=== PATIENT | female | born 1990 | race Caucasian/White ===

== ENCOUNTER → 2017-07-01 | Outpatient (CLI) | payer OTHER ==
--- NOTE | 2017-07-01 15:19 | KCIC ---
Pelvic ultrasound Clinical Indication:Right lower quadrant pain for one year.. . TRANSABDOMINAL SCAN Uterus measures about 7.6 cm x 3.0 cm x 4.7 cm. Ovaries are suboptimally visualized. TRANSVAGINAL SCAN Uterus: Measures 7.9 cm longitudinal by 3.3 cm AP by 4.0 cm wide. Endometrium: 6 mm thick. Right ovary: 3.7 cm long axis with multiple small follicles. Positive blood flow documented. Left ovary: 3.2 cm long axis. Multiple small follicles, largest cyst measures 16 mm. Positive blood flow. Free fluid: None visualized. IMPRESSION: No significant sonographic abnormality. Electronically signed by: Eagle Lobo MD (07/01/2017 3:16 PM) [facility]2
--- NOTE | 2017-07-02 18:14 | KCIC ---
Left breast ultrasound: Reason for examination: Left breast pain and lump. Ultrasound examination of the left breast was performed with attention to the area of clinical concern. No discrete cystic or solid nodules or architectural distortions are seen. IMPRESSION: No focal abnormalities evident in the left breast. Recommend clinical follow-up. BI-RADS Category 1: Negative. "Our facility is accredited by the [employer] Mammography Program." This patient's information has been entered into a reminder system for the patient to be notified with the results of her examination and a target date for the next mammogram. Electronically signed by: Monique Abdullahi MD (07/02/2017 6:10 PM) [id number]
== END | disposition home or self-care (01) ==
LOC: KCIC US 14:01
PROVIDERS: ATTEND Obstetrics & Gynecology
DX: N63 Unspecified lump in breast (principal); N64.4 Mastodynia; R10.31 Right lower quadrant pain
CPT/HCPCS: 76641; 76830; 76856

== ENCOUNTER → 2017-10-22 | Outpatient (CLI) | payer OTHER ==
--- NOTE | 2017-10-22 12:39 | KCIC ---
EXAM: Abdomen sonogram limited. HISTORY: Right upper quadrant pain. TECHNIQUE: Sonographic imaging of the abdomen was performed. COMPARISON: None. FINDINGS: The liver is upper normal in size to mildly enlarged. There is suspected hepatic steatosis. The gallbladder is unremarkable. The common bile duct is normal in caliber. The pancreas and inferior vena cava and aorta are unremarkable. The left kidney measures 12.0 cm [id number]-[id number] and is unremarkable. The right kidney is not seen. IMPRESSION: 1. Upper normal to mildly enlarged liver. 2. Suspected hepatic steatosis. 3. Nonvisualization of the right kidney. This may be due to agenesis, hypoplasia or severe atrophy. Electronically signed by: Wendie Jimenez MD (10/22/2017 12:36 PM) [facility]1
== END | disposition home or self-care (01) ==
LOC: KCIC US 11:15
PROVIDERS: ATTEND Physician Assistant Medical
DX: K76.0 Fatty (change of) liver, not elsewhere classified (principal)
CPT/HCPCS: 76705

== ENCOUNTER → 2018-01-11 | Outpatient (CLI) | payer OTHER ==
[2018-01-11] MEDS: NORMAL SALINE IV (12:35)
[2018-01-11] MEDS: SINCALIDE IV (12:35)
== END | disposition home or self-care (01) ==
LOC: NM 09:21
DX: R10.31 Right lower quadrant pain (principal); Z86.79 Personal history of other diseases of the circulatory system
CPT/HCPCS: 78226; 96374; 96375; A9537; J2805

== ENCOUNTER → 2018-04-06 | Outpatient (CLI) | payer OTHER | END | disposition home or self-care (01) | LOC: KCIC US 09:24 | DX: R10.84 Generalized abdominal pain (principal); Z86.79 Personal history of other diseases of the circulatory system | CPT/HCPCS: 76700 ==

== ENCOUNTER → 2018-04-26 | Outpatient (CLI) | payer OTHER ==
[2018-04-26] MEDS: IOHEXOL 240 MG/ML 50ML VIAL. PO (08:50)
[2018-04-26] MEDS: IOHEXOL 300 MG/ML 100ML VIAL. IV (09:53)
== END | disposition home or self-care (01) ==
LOC: KCIC CT 08:38
DX: K76.0 Fatty (change of) liver, not elsewhere classified (principal); N32.89 Other specified disorders of bladder
CPT/HCPCS: 74177; Q9966; Q9967

== ENCOUNTER → 2018-05-31 | Outpatient (CLI) | payer OTHER ==
[2018-05-31 10:35] LABS: ADD MAN DIFF? NO
[2018-05-31 10:52] LABS: BASO # 0.1 x10^3/uL (0.0-0.2); BASO % 1 % (0-3); EOS # 0.4 x10^3/uL (0.0-0.7); EOS % 4 % (0-3); HEMATOCRIT 37.3 % (36.0-47.0); HEMOGLOBIN 12.3 g/dL (12.0-15.5); LYMPH # 2.1 x10^3/uL (1.0-4.8); LYMPH % 23 % (24-48); MEAN CORPUSCULAR HEMOGLOBIN 28 pg (25-35); MEAN CORPUSCULAR HGB CONC 33 g/dL (31-37); MEAN CORPUSCULAR VOLUME 86 fL (79-100); MONO # 0.5 x10^3/uL (0.0-1.1); MONO % 5 % (0-9); NEUT # 6.1 x10^3uL (1.8-7.7); NEUT % 66 % (31-73); PLATELET COUNT 295 x10^3/uL (140-400); RED BLOOD COUNT 4.33 x10^6/uL (3.50-5.40); RED CELL DISTRIBUTION WIDTH 14.2 % (11.5-14.5); WHITE BLOOD COUNT 9.2 x10^3/uL (4.0-11.0)
[2018-05-31 11:02] LABS: ALBUMIN 3.5 g/dL (3.4-5.0); ANION GAP 7 (6-14); BLOOD UREA NITROGEN 12 mg/dL (7-20); CALCIUM 8.9 mg/dL (8.5-10.1); CARBON DIOXIDE 26 mmol/L (21-32); CHLORIDE 104 mmol/L (98-107); CREATININE 0.9 mg/dL (0.6-1.0); GFR 76.3; GLUCOSE 76 mg/dL (70-99); SODIUM 137 mmol/L (136-145); TOTAL BILIRUBIN 0.2 mg/dL (0.2-1.0)
== END | disposition home or self-care (01) ==
LOC: SURGPAT 09:59
DX: Z01.818 Encounter for other preprocedural examination (principal); K81.1 Chronic cholecystitis
CPT/HCPCS: 36415; 80048; 82040; 82247; 85025

== ENCOUNTER → 2018-06-29 | Outpatient (CLI) | payer OTHER ==
[2018-06-29 16:24] LABS: ADD MAN DIFF? NO
[2018-06-29 16:27] LABS: BASO # 0.1 x10^3/uL (0.0-0.2); BASO % 1 % (0-3); EOS # 0.2 x10^3/uL (0.0-0.7); EOS % 2 % (0-3); HEMOGLOBIN 11.4 g/dL (12.0-15.5); LYMPH % 23 % (24-48); MEAN CORPUSCULAR HEMOGLOBIN 29 pg (25-35); MEAN CORPUSCULAR HGB CONC 33 g/dL (31-37); MEAN CORPUSCULAR VOLUME 86 fL (79-100); MONO # 0.5 x10^3/uL (0.0-1.1); MONO % 5 % (0-9); NEUT # 6.1 x10^3uL (1.8-7.7); NEUT % 69 % (31-73); PLATELET COUNT 258 x10^3/uL (140-400); RED BLOOD COUNT 3.96 x10^6/uL (3.50-5.40); RED CELL DISTRIBUTION WIDTH 14.3 % (11.5-14.5); WHITE BLOOD COUNT 8.9 x10^3/uL (4.0-11.0)
[2018-06-29 16:29] LABS: BILIRUBIN,URINE NEGATIVE (NEG); CLARITY,URINE CLEAR; COLOR,URINE YELLOW; GLUCOSE,URINE NEGATIVE (NEG); NITRITE,URINE NEGATIVE (NEG); PH,URINE 5.5; PROTEIN,URINE NEGATIVE (NEG-TRACE); UROBILINOGEN,URINE 0.2 mg/dL (0.2 mg/dL)
[2018-06-29 16:38] LABS: BACTERIA,URINE FEW /HPF (0-FEW); RBC,URINE 0 /HPF (0-2); SQUAMOUS EPITHELIAL CELL,UR FEW /LPF; WBC,URINE 0 /HPF (0-4)
[2018-06-29 16:49] LABS: ALBUMIN 3.4 g/dL (3.4-5.0); ALBUMIN/GLOBULIN RATIO 0.9 (1.0-1.7); ALK PHOS 116 U/L (46-116); ALT (SGPT) 22 U/L (14-59); ANION GAP 9 (6-14); AST (SGOT) 17 U/L (15-37); BLOOD UREA NITROGEN 12 mg/dL (7-20); BUN/CREATININE RATIO 13 (6-20); CALCIUM 8.4 mg/dL (8.5-10.1); CARBON DIOXIDE 24 mmol/L (21-32); CHLORIDE 105 mmol/L (98-107); CREATININE 0.9 mg/dL (0.6-1.0); GFR 76.3; GLUCOSE 100 mg/dL (70-99); POTASSIUM 3.9 mmol/L (3.5-5.1); SODIUM 138 mmol/L (136-145); TOTAL BILIRUBIN 0.2 mg/dL (0.2-1.0); TOTAL PROTEIN 7.3 g/dL (6.4-8.2)
== END | disposition home or self-care (01) ==
LOC: LAB 16:02
DX: R10.9 Unspecified abdominal pain (principal)
CPT/HCPCS: 36415; 80053; 81001; 85025

== ENCOUNTER → 2018-06-30 | Outpatient (CLI) | payer OTHER | END | disposition home or self-care (01) | LOC: US 09:35 | DX: K76.0 Fatty (change of) liver, not elsewhere classified (principal); Z86.79 Personal history of other diseases of the circulatory system | CPT/HCPCS: 76705 ==

== ENCOUNTER → 2018-10-03 | Outpatient (CLI) | payer OTHER ==
[~2018-10-03] MED LIST: DOXY100C14 PO; ESCITALOPRAM OX10 MG PO; OSEL30CA PO; OXYC-323 PO; PROAIR HFA8.5 GM INH; SENN1TAB70 PO
--- NOTE | 2018-10-03 17:21 | RAD ---
Examination: CT CHEST WO CONTRAST History: EFFUSION Comparison/Correlation: 01/21/2018 two-view chest x-ray exam Findings: Axial images of the chest were obtained without contrast. Sagittal and coronal reformatted images were provided. Trachea and bronchial tree are unremarkable. Linear atelectasis or scarring involves the right middle lobe. No pleural or pericardial effusion. No masses or pulmonary nodules. No suspicious infiltrates. Bony structures are unremarkable. No enlarged thoracic lymph nodes. Cholecystectomy is evident. Severe right renal atrophy is evident and this may be developmental. Small right renal cyst at the posterior aspect is suspected. Impression: No pleural or pericardial effusion. No infiltrates. Severe right renal atrophy. Electronically signed by: Derrek Noe MD (10/03/2018 5:18 PM) [facility]
== END | disposition home or self-care (01) ==
LOC: CT 14:06
PROVIDERS: ATTEND Internal Medicine Critical Care Medicine
DX: Z00.00 Encounter for general adult medical examination without abnormal findings (principal); N26.1 Atrophy of kidney (terminal); Z90.49 Acquired absence of other specified parts of digestive tract
CPT/HCPCS: 71250

== ENCOUNTER → 2018-11-10 | Outpatient (CLI) | payer OTHER ==
[~2018-11-10] MED LIST changes: +ALBU2.5V8 INH; +ALBUTEROL SULFATE 2.5 MG/3 ML NEBU. NEB ONE; +METHACHOLINE CHLORIDE 100 MG VIAL.NEB. INH ONE; -OXYC-323 PO; +OXYC1TAB15 PO; -PROAIR HFA8.5 GM INH
--- NOTE | 2018-11-15 12:58 | RESP ---
DATE OF SERVICE: 11/10/2018 ATTENDING PHYSICIAN: Marin Barroso PA-C The patient underwent methacholine challenge performed on 11/10/2018. Cumulative dose of methacholine resulted in decrease FEV1, the baseline was 2.76 liters at 97% of predicted. After methacholine challenge, it decreased to 2.39 liters at 84% of predicted. IMPRESSION: Positive methacholine challenge revealed decrease FEV1 from 2.76 liters to 2.39 liters. KATHERINE VILLAGRAN MD DR: MARIZOL/smith JOB#: [id number] / [id number]
== END | disposition home or self-care (01) ==
LOC: PF 08:30
PROVIDERS: ATTEND Internal Medicine Critical Care Medicine
DX: J45.909 Unspecified asthma, uncomplicated (principal)
CPT/HCPCS: 94060; 94070; 94618; 94640; J7613; J7674

== ENCOUNTER → 2018-11-11 | Outpatient (CLI) | payer OTHER ==
[~2018-11-11] MED LIST changes: -ALBUTEROL SULFATE 2.5 MG/3 ML NEBU. NEB ONE; -METHACHOLINE CHLORIDE 100 MG VIAL.NEB. INH ONE
--- NOTE | 2018-11-11 15:52 | CARD ---
MR#: [id number] Date of Study: 11/11/2018 Ordering Physician: BASIM SHARMA, Referring Physician: BASIM SHARMA, Tech: Roberta Damian [facility] APPROVED REPORT EXAM: Two-dimensional and M-mode echocardiogram with Doppler and color Doppler. Other Information Quality : AverageHR: 65bpm Rhythm : NSR INDICATION Dyspnea 2D DIMENSIONS RVDd3.1 (2.9-3.5cm)Left Atrium(2D)3.2 (1.6-4.0cm) IVSd0.8 (0.7-1.1cm)Aortic Root(2D)2.6 (2.0-3.7cm) LVDd5.1 (3.9-5.9cm)LVOT Diameter2.0 (1.8-2.4cm) PWd0.9 (0.7-1.1cm)LVDs3.5 (2.5-4.0cm) FS (%) 31.5 %SV72.6 ml LVEF(%)59.1 (>50%) M-Mode DIMENSIONS Left Atrium(MM)2.78 (2.5-4.0cm)Aortic Root2.67 (2.2-3.7cm) Aortic Valve AoV Peak Ephraim.166.7cm/sAoV VTI32.7cm AO Peak GR.11.1mmHgLVOT Peak Ephraim.117.2cm/s AO Mean GR.6mmHgAVA (VMAX)2.10cm2 RONDA (VTI)2.10cm2 Mitral Valve MV E Vklemqfo894.9cm/sMV E Peak Gr.8mmHg MV DECEL LDRB180mmFR A Yjoqmubm65.0cm/s MV E Mean Gr.2mmHgE/A Ratio1.7 MV A Ccnefhdy803si Pulmonary Valve PV Peak Knaktume312.0cm/s Tricuspid Valve TR P. Nejjqcuz309kz/sRAP IYPUFSQU8hfXn TR Peak Gr.34kzPmWUJY02ucHk Pulmonary Vein S1 Updawjms54.2cm/sD2 Layweeik40.0cm/s PVa vxqrclyv619lzsd LEFT VENTRICLE The left ventricle is normal size. There is normal left ventricular wall thickness. The left ventricu lar systolic function is normal and the ejection fraction is within normal range. The Ejection Fracti on is 55-60%. There is normal LV segmental wall motion. The left ventricular diastolic function and f illing is normal for age. RIGHT VENTRICLE The right ventricle is normal size. There is normal right ventricular wall thickness. The right ventr icular systolic function is normal. ATRIA The left atrium size is normal. The right atrium size is normal. The interatrial septum is intact wit h no evidence for an atrial septal defect or patent foramen ovale as noted on 2-D or Doppler imaging. AORTIC VALVE The aortic valve is bicuspid. Doppler and Color Flow revealed no significant aortic regurgitation. Th ere is no significant aortic valvular stenosis. MITRAL VALVE The mitral valve is normal in structure and function. There is no evidence of mitral valve prolapse. There is no mitral valve stenosis. Doppler and Color-flow revealed trace mitral regurgitation. TRICUSPID VALVE The tricuspid valve is normal in structure and function. Doppler and Color Flow revealed trace tricus pid regurgitation. The PA pressure was estimated at 26 mmHg. There is no tricuspid valve prolapse or vegetation. There is no tricuspid valve stenosis. PULMONIC VALVE The pulmonary valve is normal in structure and function. Doppler and Color Flow revealed no pulmonic valvular regurgitation. There is no pulmonic valvular stenosis. GREAT VESSELS The aortic root is normal in size. The ascending aorta is normal in size. The IVC is normal in size a nd collapses >50% with inspiration. PERICARDIAL EFFUSION There is no evidence of significant pericardial effusion. Critical Notification Critical Value: No <Conclusion> The left ventricle is normal size. The left ventricular systolic function is normal and the ejection fraction is within normal range. The Ejection Fraction is 55-60%. There is normal left ventricular wall thickness. There is no significant aortic valvular stenosis. Doppler and Color Flow revealed no significant aortic regurgitation. Doppler and Color-flow revealed trace mitral regurgitation. Doppler and Color Flow revealed trace tricuspid regurgitation. The PA pressure was estimated at 26 mmHg. Signed by : Edgard Linares MD Electronically Approved : 11/11/2018 15:50:50
== END | disposition home or self-care (01) ==
LOC: ECHO 14:18
PROVIDERS: ATTEND Internal Medicine Pulmonary Disease
DX: R06.00 Dyspnea, unspecified (principal)
CPT/HCPCS: 93306

== ENCOUNTER → 2020-04-24 | Outpatient (CLI) | payer OTHER ==
--- NOTE | 2020-04-24 16:15 | RAD ---
LUMBAR SPINE 2-3V, SACRUM COCCYX 3V, HIP BILATERAL WITH PELVIS History: Reason: ACUTE LEFT-SIDED LOW BACK PAIN WITH LEFT-SIDED SCIATICA. PAIN OF SYMPHYSIS. AP pelvis with bilateral two-view hip: Tiny sclerotic density within the left inferior pubic ramus, measures 5 mm diameter, most compatible with a bone island. Note this was also seen on CT pelvis exam of April 26, 2018 and is unchanged since that time. No aggressive bone destruction. No evidence of acute fracture. Joint spaces appear intact. No significant soft tissue abnormality. Sacrum and coccyx: Mild subchondral sclerosis about the sacroiliac joints, somewhat greater on the iliac aspects. Mild ill-definition of subchondral bone, particular at the inferior sacroiliac joints. To some extent this sclerosis was also identified on the prior CT scan of April 26, 2018. No evidence of ankylosis. Joint spaces appear fairly symmetric. No evidence of aggressive bone destruction or acute fracture. Small sclerotic density at the right lateral upper sacrum appears similar as the prior CT scan, most likely a bone island. Three-view lumbar spine: Vertebral body height is intact. Disc spaces are mostly preserved. Note there is mild curvilinear calcification along the posterior L4-L5 and L5-S1 disc, may represent mildly calcified disc bulges, also noted on the prior CT scan of April 26, 2018. Alignment is intact. Surgical clips in the right upper quadrant. Ympv-pk-yxjpiolq stool noted in the colon. No evidence of acute fracture or aggressive bone destruction. IMPRESSION: 1. No acute findings are identified. 2. Mild sclerotic change and lucency along the sacroiliac joints bilaterally, to some degree present in 2018. Bilateral symmetric sacroiliitis could result in a similar appearance. 3. Mild lower lumbar spondylosis. 4. If further evaluation of any of these areas is warranted due to current or persistent symptoms, consider MRI of the area of interest. Electronically signed by: Eagle Lobo MD (04/24/2020 4:12 PM) [id number]
== END | disposition home or self-care (01) ==
LOC: RAD 14:35
PROVIDERS: ATTEND Physician Assistant Medical
DX: M47.896 Other spondylosis, lumbar region (principal); M54.42 Lumbago with sciatica, left side; M46.1 Sacroiliitis, not elsewhere classified; N94.9 Unspecified condition associated with female genital organs and menstrual cycle
CPT/HCPCS: 72100; 72220; 73521

== ENCOUNTER → 2020-05-16 | Outpatient (CLI) | payer OTHER ==
--- NOTE | 2020-05-16 14:23 | KCIC ---
MRI Lumbar Spine without contrast History: Bilateral pain, low back pain, sciatica Technique: Multiplanar, multi sequential noncontrast MR imaging was performed of the lumbar spine. Comparison: None Findings: Lumbar vertebral body stature and AP alignment are maintained. There is zfzm-qs-sbyyjfkx L5-S1 degenerative disc disease. There is no significant focal marrow edema. Conus terminates at L2. L1-L2: This level was not included on the axial images. Neural foramina and spinal canal are adequate. L2-L3: Spinal canal and neural foramina are adequate. L3-L4: There is mild buckling of the ligamentum flavum and mild facet degenerative change. Spinal canal and the neural foramina are adequate. L4-L5: There is mild buckling of the ligamentum flavum and mild facet hypertrophic change. Spinal canal and neural foramina are adequate. L5-S1: There is protrusion/contained extrusion eccentric to the left lateral recess about 5 to 6 mm AP by 14 mm transverse by 6 mm CC. There is indentation upon the ventral thecal sac in the far left lateral recess with contact and mild posterior displacement of the descending left S1 nerve root, mild to moderate narrowing of the far left lateral recess. Central canal and right lateral recess are adequate. There is mild inferior narrowing of the left neural foramen by minimal disc osteophyte complex. Right neural foramen is overall adequate. Impression: 1. There is protrusion/contained extrusion in the left lateral recess at L5-S1 with posterior displacement of the descending left S1 nerve root, jhmv-tg-dwvryjsh left lateral recess stenosis at this level. There is mild to moderate L5-S1 degenerative disc disease. There is no significant lumbar neural foramina compromise, mild inferior narrowing on the left at L5-S1. Electronically signed by: Garcia Pascual MD (05/16/2020 2:21 PM) [id number]
--- NOTE | 2020-05-16 15:10 | KCIC ---
EXAM: MRI pelvis without contrast INDICATION: Bilateral sacroiliitis, lower back pain with sciatica. Chronic lower back pain, pain and numbness and SI joint region and pubic bone pain. COMPARISON: Bilateral hip and pelvis radiograph 04/24/2020 TECHNIQUE: Multiplanar, multisequence imaging of the pelvis without contrast FINDINGS: Bones and joints: No acute fracture. No marrow edema. There is mild triangular shaped iliac-sided sclerosis along the sacroiliac joints bilaterally. No sacral-sided sclerosis. No erosions, fusion, or marrow edema of the sacroiliac joint. No sacroiliac joint effusion. There is a small bone island in the right hemisacrum at the level of S1. No significant degenerative joint disease of the pubic symphysis. Hip joints are maintained. Soft tissue: Bilateral gluteus medius and minimus, hamstrings, iliopsoas, and rectus femoris tendons are intact. Rectus abdominis-adductor aponeurosis is normal without evidence of tear. Muscles are normal in signal and bulk. No bursitis. No inguinal lymphadenopathy. Visualized intrapelvic contents are unremarkable. 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 The sacroiliac joints themselves and sacrum are normal in appearance without erosions, fusion, or marrow edema to suggest sacroiliitis. Electronically signed by: Salena Bennett MD (05/16/2020 3:07 PM) [id number]
== END ==
LOC: KCIC MRI 13:02
PROVIDERS: ATTEND Physician Assistant Medical
DX: M51.37 Other intervertebral disc degeneration, lumbosacral region (principal); M48.07 Spinal stenosis, lumbosacral region; M54.42 Lumbago with sciatica, left side; M46.1 Sacroiliitis, not elsewhere classified; N94.9 Unspecified condition associated with female genital organs and menstrual cycle
CPT/HCPCS: 72148; 72195

== ENCOUNTER → 2020-12-19 | Outpatient (CLI) | payer OTHER ==
--- NOTE | 2020-12-19 16:24 | KCIC ---
INDICATION: Reason: Cough, productive at times, asthma. / Spl. Instructions: Cough since 12/10/20, neg ative Covid test. / History: COMPARISON: March 2018 FINDINGS: Single view of chest obtained. Cardiac silhouette is unremarkable. No definite focal airspace consolidation. No gross osseous destru ction IMPRESSION: * No focal airspace consolidation. Electronically signed by: Kody Dukes MD (12/19/2020 4:22 PM) [id number]
== END ==
LOC: KCIC 14:36
PROVIDERS: ATTEND Internal Medicine
DX: J45.20 Mild intermittent asthma, uncomplicated (principal); J98.9 Respiratory disorder, unspecified; R09.89 Other specified symptoms and signs involving the circulatory and respiratory systems
CPT/HCPCS: 71046